=== PATIENT | female | born 1995 | race Caucasian/White ===

== ENCOUNTER 2019-11-03 11:07 | Emergency (ER) | payer SELFPAY ==
[~2019-11-03] VITALS: Ht 152.4 cm; Wt 36.3 kg
[2019-11-03 11:08] VITALS: BP 118/88
--- NOTE | 2019-11-03 11:30 | NUR ---
20G IV IN LAC. PT ON 3 LEAD EKG AND PULSE OX. AT BEDSIDE.
--- NOTE | 2019-11-03 11:53 | NUR ---
24 Y/F BIB , POSTICTAL. REPORTS HE FOUND HER IN THE SHOWER POSTICTAL. HE FOUND HER LYING WITH HER HEAD IN THE BATH TUB AND BODY OUTSIDE, HE REPORTS SHE "DRANK WATER." PT NONVERBAL, PRESENTS WITH CHIN, FOREHEAD, BRIDGE OF NOSE EDEMA, LIP SWELLING AND ERRYTHEMA. PERRLA IN TACT, RESPONDS TO VERBAL AND TACTILE STIMULUS. REPORTS SHE RAN OUT OF KEPPRA AND HAS NOT TAKEN IT FOR ONE DAY. REPORTS 3 SEIZURES ABOUT 20 MINUTES APART, LASING 30-45 SECONDS. REPORTS PT SMOKED MARIJUANA X 2 DAY. LUNGS CLEAR. PER HX- ANXIETY, PANICK ATTACK
--- NOTE | 2019-11-03 12:58 | NUR ---
PT TAKING HYDROXYZINE 25MG, AND PAROXETINE 10MG
[2019-11-03] MEDS ORDERED: levETIRAcetam 1,000 MG in NACL 0.9% 100 ML IV ONE (13:00)
[2019-11-03] MEDS ORDERED: levETIRAcetam 100 MG/ML VIAL IV ONE (13:13)
--- NOTE | 2019-11-03 13:25 | NUR ---
PTS BP 83/65, VERBAL ORDER FOR BOLUS
--- NOTE | 2019-11-03 13:28 | NUR ---
PTS AT BEDSIDE, PT OPENING EYES, SPEAKING IN FULL AND COMPLETE SENTENCES. MOVING ALL EXTREMETIES, EQUAL ARM [employer], PUPILS PERRL. LIGHTS TURNED OFF FOR PT COMFORT.
[2019-11-03] MEDS ORDERED: NACL 0.9% 1,000 ML IV ONE (13:30)
--- NOTE | 2019-11-03 13:32 | NUR ---
NEW BP 104/51
[2019-11-03 14:17] VITALS: BP 104/51
--- NOTE | 2019-11-03 14:18 | NUR ---
Patient discharged with v/s stable. Written and verbal after care instructions given and explained. Patient alert, oriented and verbalized understanding of instructions. Ambulatory with steady gait. All questions addressed prior to discharge. ID band removed. Patient advised to follow up with PMD. Rx of MOTRIN, AUGMENTIN, TRAMADOL given. Patient educated on indication of medication including possible reaction and side effects. Opportunity to ask questions provided and answered.
== END 2019-11-03 14:18 | disposition home or self-care (01) ==
LOC: MED 11:07
DX: S02.641A Fracture of ramus of right mandible, initial encounter for closed fracture (principal); S00.512A Abrasion of oral cavity, initial encounter; S00.31XA Abrasion of nose, initial encounter; R56.9 Unspecified convulsions; W22.8XXA Striking against or struck by other objects, initial encounter; Y93.89 Activity, other specified; Y92.89 Other specified places as the place of occurrence of the external cause; Y99.8 Other external cause status
CPT/HCPCS: 70450; 70486; 72125; 96365; 99284; J1953; J7030

== ENCOUNTER 2020-08-27 01:29 | Emergency (ER) | payer MEDICAID ==
[~2020-08-27] VITALS: Ht 149.9 cm; Wt 45.4 kg
[~2020-08-27 01:29] MED LIST: LEVE1000 PO
[2020-08-27 01:33] VITALS: BP 150/74
--- NOTE | 2020-08-27 01:37 | NUR ---
TO LOBBY A/W BED AMBULATORY
--- NOTE | 2020-08-27 02:54 | NUR ---
CALLED PATIENT NAME X 3 IN LOBBY AND OUTSIDE. NO RESPONSE.
[2020-08-27 02:55] VITALS: BP 150/74
--- NOTE | 2020-08-27 02:55 | NUR ---
PATIENT LEFT WITHOUT BEING SEEN BY DR. CANALES. NO FURTHER CARE PROVIDED FOR PATIENT.
== END 2020-08-27 02:55 | disposition left against medical advice (07) ==
LOC: MED 01:29
DX: R20.0 Anesthesia of skin (principal); Z53.21 Procedure and treatment not carried out due to patient leaving prior to being seen by health care provider

== ENCOUNTER 2020-11-09 18:04 | Emergency (ER) | payer MEDICAID ==
[~2020-11-09] VITALS: Ht 152.4 cm; Wt 45.0 kg
[2020-11-09 18:09] VITALS: BP 105/70
[2020-11-09] MEDS ORDERED: levETIRAcetam 1,000 MG in NACL 0.9% 100 ML IV ONE (18:15)
[2020-11-09] MEDS ORDERED: levETIRAcetam 100 MG/ML VIAL IV ONE (18:16)
[2020-11-09 19:49] VITALS: BP 95/63
== END 2020-11-09 19:50 | disposition home or self-care (01) ==
LOC: MED 18:04
DX: R56.9 Unspecified convulsions (principal)
CPT/HCPCS: 81002; 81025; 96365; 99284; J1953

== ENCOUNTER 2020-12-24 09:54 | Emergency (ER) | payer MEDICAID ==
[~2020-12-24] VITALS: Ht 149.9 cm; Wt 41.3 kg
[2020-12-24 09:56] VITALS: BP 132/83
[2020-12-24] MEDS ORDERED: ZOLP5TAB1 PO (11:48)
[2020-12-24 12:15] VITALS: BP 99/68
== END 2020-12-24 12:14 | disposition home or self-care (01) ==
LOC: MED 09:54
DX: F32.9 Major depressive disorder, single episode, unspecified (principal); G47.00 Insomnia, unspecified; Z91.018 Allergy to other foods
CPT/HCPCS: 81002; 81025; 99283

== ENCOUNTER 2020-12-30 22:15 | Emergency (ER) | payer MEDICAID ==
[~2020-12-30] VITALS: Ht 152.4 cm; Wt 41.3 kg
[~2020-12-30 22:15] MED LIST changes: +ZOLP5TAB1 PO
[2020-12-30 22:21] VITALS: BP 103/74
--- NOTE | 2020-12-30 22:32 | NUR ---
PT TAKEN TO BED 3
--- NOTE | 2020-12-30 22:40 | NUR ---
25 y/o female presented to ED c/o of LQ abd x 2 hrs . Pt describes pain as burning 10/10 sensation. Pt denies fever, chills body aches, dysuria , vaginal discharge or bleeding. Pt abd flat, soft and tender upon palpation. Active bowel sounds in all quadrants. Pt secondary c/o had x 2 witnessed seziures today. Pt states she is out of her medications, pt states she usually takes keppra 1500 mg. A/O x 4 , to is alert and able to follow all commands. Pt resting in bed, locked and in lowest position, HOB elevated, side rail x 2 w/ seizure precautions. Pt connected to monitoring manager w/ seizure pads in place. pmh: seizures ax: peaches
--- NOTE | 2020-12-30 22:44 | NUR ---
Dr. Herrera examining patient.
--- NOTE | 2020-12-30 23:15 | NUR ---
Pt ambulated to restroom w/ steady gait.
--- NOTE | 2020-12-30 23:18 | NUR ---
Lab at bedside.
[2020-12-30 23:26] LABS: APPEARANCE,URINE CLEAR (CLEAR); BILIRUBIN,URINE NEGATIVE (NEGATIVE); BLOOD, URINE NEGATIVE (NEGATIVE); COLOR,URINE YELLOW (YELLOW); LEUKOCYTE ESTERASE ,URINE NEGATIVE (NEGATIVE); NITRITE, URINE NEGATIVE (NEGATIVE); UGLUCOSE NEGATIVE (NEGATIVE)
[2020-12-30 23:28] LABS: BASOPHILS % (AUTO) 0.4 % (0.0-2.0); EOSINOPHILS # (AUTO) 0.1 K/uL (0-0.4); EOSINOPHILS % (AUTO) 2.1 % (0.0-4.0); HEMATOCRIT 40.8 % (36-48); HEMOGLOBIN 13.6 g/dL (12.0-16.0); LYMPHOCYTES # (AUTO) 1.9 K/uL (2.5-16.5); LYMPHOCYTES % (AUTO) 32.3 % (20.5-51.1); MEAN CORPUSCULAR HEMOGLOBIN 30 pg (27-31); MEAN CORPUSCULAR HGB CONC 33 g/dL (33-37); MEAN CORPUSCULAR VOLUME 88.8 fL (80-94); MONOCYTES # (AUTO) 0.5 K/uL (0.8-1.0); MONOCYTES % (AUTO) 8.6 % (1.7-9.3); NEUTROPHILS # (AUTO) 3.4 K/uL (1.8-7.7); NEUTROPHILS % (AUTO) 56.6 % (42.2-75.2); PLATELET COUNT (AUTO) 277 K/uL (140-450); RED BLOOD CELL COUNT(AUTO) 4.59 MIL/uL (4.20-5.40); WHITE BLOOD COUNT (AUTO) 5.9 K/uL (4.8-10.8)
--- NOTE | 2020-12-30 23:35 | NUR ---
PT TAKEN TO CT
[2020-12-30 23:42] LABS: ALBUMIN 4.4 g/dL (3.4-5.0); ANION GAP 10.9 (8-16); CREATININE 0.8 mg/dL (0.6-1.3); POTASSIUM 3.9 mmol/L (3.5-5.1); TOTAL BILIRUBIN 0.2 mg/dL (0.0-1.0)
--- NOTE | 2020-12-31 01:00 | NUR ---
CALLED RADIOLOGY FOR ETA ON CT REPORT - PER JYOTHI THERE IS A DELAY IN READING REPORTS BUT WILL CHECK STATUS.
--- NOTE | 2020-12-31 01:50 | NUR ---
PT LAYING LEFT LATERALLY W/ EYES CLOSED, VISIBLE RISE AND FALL OF CHEST. BED IS LOCKED AND IN LOWEST POSITION, HOB ELEVATED, SEIZURE PRECAUTIONS IN PLACE. VSS. NO ACUTE DISTRESS NOTED.
[2020-12-31] MEDS ORDERED: MAGNESIUM CITRATE 300 ML BTL PO ONE (03:05)
[2020-12-31 03:22] VITALS: BP 94/62
--- NOTE | 2020-12-31 03:22 | NUR ---
Patient discharged with v/s stable. Written and verbal after care instructions given and explained. Patient verbalized understanding. Ambulatory with steady gait. All questions addressed prior to discharge. Advised to follow up with PMD.
== END 2020-12-31 03:22 | disposition home or self-care (01) ==
LOC: MED 22:15
DX: R10.30 Lower abdominal pain, unspecified (principal); Z79.899 Other long term (current) drug therapy; Z91.018 Allergy to other foods
CPT/HCPCS: 36415; 80053; 81003; 81025; 84702; 85025; 99285

== ENCOUNTER 2021-01-12 23:40 | Emergency (ER) | payer MEDICAID ==
[~2021-01-12] VITALS: Ht 152.4 cm; Wt 40.6 kg
[2021-01-12 23:54] VITALS: BP 101/69
--- NOTE | 2021-01-12 23:54 | NUR ---
TO BED AMBULATORY
--- NOTE | 2021-01-13 | NUR ---
25 YO/F BIB FAMILY WITH COMPLAINT OF SEIZURE PT HAD 2 PREVIOUS EPISODES LATEST ONE WAS AT 1900. PT VERBALIZED FEELING HER AURA. PT AAOX4, PERRL. SAFETY MEASURES IN PLACE, SIDE RAILS RAISED AND PADDED, PT HOOKED TO MONITORS, VS STABLE AT THIS TIME. WILL CONTINUE TO MONITOR. PMH: SEIZURES, HYPOTENSION ALLERGY: PEACHES
--- NOTE | 2021-01-13 00:23 | NUR ---
DR. MEI AT BEDSIDE FOR EXAMINATION
[2021-01-13] MEDS ORDERED: LORazepam 1 MG TAB PO ONE (00:35)
[2021-01-13 01:07] LABS: CARBON DIOXIDE 26.4 mmol/L (21-32); CREATININE 0.6 mg/dL (0.6-1.3); POTASSIUM 3.4 mmol/L (3.5-5.1)
[2021-01-13] MEDS ORDERED: POTASSIUM CHLORIDE 20% 40 MEQ/15 ML UDC PO ONE (01:25)
--- NOTE | 2021-01-13 02:05 | NUR ---
Patient discharged with v/s stable. Written and verbal after care instructions given and explained. Patient alert, oriented and verbalized understanding of instructions. Ambulatory with steady gait. All questions addressed prior to discharge. ID band removed. Patient advised to follow up with PMD. Rx of BRITTANY CALDWELL given. Patient educated on indication of medication including possible reaction and side effects. Opportunity to ask questions provided and answered.
[2021-01-13 02:06] VITALS: BP 108/68
== END 2021-01-13 02:05 | disposition home or self-care (01) ==
LOC: MED 23:40
DX: R56.9 Unspecified convulsions (principal); Z91.018 Allergy to other foods
CPT/HCPCS: 36415; 80048; 99283

== ENCOUNTER 2021-02-02 00:01 | Emergency (ER) | payer MEDICAID ==
[~2021-02-02] VITALS: Ht 152.4 cm; Wt 56.7 kg
[2021-02-02 00:08] VITALS: BP 120/66
--- NOTE | 2021-02-02 00:08 | NUR ---
TO BED AMBULATORY
[2021-02-02] MEDS ORDERED: levETIRAcetam 500 MG TAB PO ONE (00:20)
--- NOTE | 2021-02-02 00:30 | NUR ---
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 PT HAS H/O SEIZURES. APPEARS POST-ICTAL. SZ PRECAUTIONS PLACED
--- NOTE | 2021-02-02 01:01 | NUR ---
AWAKE, AMBULATED TO BR WITH STEADY GAIT
--- NOTE | 2021-02-02 01:21 | NUR ---
Dr. Cobb examining patient.
[2021-02-02] MEDS ORDERED: LEVE1000 PO (01:35)
[2021-02-02 02:00] VITALS: BP 120/66
--- NOTE | 2021-02-02 02:00 | NUR ---
Patient discharged with v/s stable. Written and verbal after care instructions given and explained. Patient alert, oriented and verbalized understanding of instructions. Ambulatory with steady gait. All questions addressed prior to discharge. ID band removed. Patient advised to follow up with PMD. Rx of KEXOCHITL given. Patient educated on indication of medication including possible reaction and side effects. Opportunity to ask questions provided and answered.
== END 2021-02-02 02:00 | disposition home or self-care (01) ==
LOC: MED 00:01
DX: R56.9 Unspecified convulsions (principal); Z79.899 Other long term (current) drug therapy; Z91.018 Allergy to other foods
CPT/HCPCS: 99283

== ENCOUNTER 2021-02-07 21:28 | Emergency (ER) | payer MEDICAID ==
[~2021-02-07] VITALS: Ht 152.4 cm; Wt 45.4 kg
[2021-02-07 21:53] VITALS: BP 128/73
--- NOTE | 2021-02-07 21:57 | NUR ---
TO LOBBY A/W BED WITH AMBULATORY
--- NOTE | 2021-02-07 22:30 | NUR ---
PATIENT 26 Y/O FEMALE BIBA FROM HOME FOR C/O ANXIETY AND POSSIBLE SEIZRE ACTIVITY. PER EMS REPORT PATIENT STATES," I THINK I'M HAVING A SEIZURE" DURING TRANSPORTATION AND PATIENT WAS A&O X 4, VERBAL AND RESPONSIVE. PATIENT STATES, "I HAVE A HISTORY OF SIZURES AND I FEEL AXIETY RIGHT NOW." PATIENT DENIES HITTING HEAD, PATIENT A&O X 4. PATIENT RESPIRATIONS ARE EVEN AND UNLABORD. SKIN IS WARM AND DRY TO TOUCH. MEDHX: SIEZURES, AXNIETY ALLERGIES: NKA RX: "KEPPRA 150 MG"
--- NOTE | 2021-02-08 00:12 | NUR ---
Patient appears to be resting comfortably in bed. Vital Signs within normal limits. Respirations even and unlabored. Seizure precautions in place. Bed is locked and in lowest postion.
[2021-02-08 00:23] LABS: BASOPHILS % (AUTO) 0.2 % (0.0-2.0); EOSINOPHILS # (AUTO) 0.1 K/uL (0-0.4); EOSINOPHILS % (AUTO) 1.2 % (0.0-4.0); HEMATOCRIT 36.8 % (36-48); HEMOGLOBIN 12.2 g/dL (12.0-16.0); LYMPHOCYTES # (AUTO) 1.4 K/uL (2.5-16.5); LYMPHOCYTES % (AUTO) 15.8 % (20.5-51.1); MEAN CORPUSCULAR HEMOGLOBIN 30 pg (27-31); MEAN CORPUSCULAR HGB CONC 33 g/dL (33-37); MEAN CORPUSCULAR VOLUME 89.2 fL (80-94); MONOCYTES # (AUTO) 0.6 K/uL (0.8-1.0); MONOCYTES % (AUTO) 6.3 % (1.7-9.3); NEUTROPHILS # (AUTO) 6.8 K/uL (1.8-7.7); NEUTROPHILS % (AUTO) 76.5 % (42.2-75.2); PLATELET COUNT (AUTO) 224 K/uL (140-450); RED BLOOD CELL COUNT(AUTO) 4.13 MIL/uL (4.20-5.40); WHITE BLOOD COUNT (AUTO) 8.9 K/uL (4.8-10.8)
[2021-02-08 00:36] LABS: ANION GAP 11.8 (8-16); CARBON DIOXIDE 25.6 mmol/L (21-32); CREATININE 0.6 mg/dL (0.6-1.3); POTASSIUM 3.4 mmol/L (3.5-5.1); TOTAL BILIRUBIN 0.3 mg/dL (0.0-1.0)
--- NOTE | 2021-02-08 01:03 | NUR ---
PATIENT AMBUALTED TO RESTROOM WITH STEADY GAIT. UA CUP PROVIDED.
[2021-02-08] MEDS ORDERED: POTASSIUM CHLORIDE 10 MEQ TABER PO ONE ×2 (01:10→01:15)
[2021-02-08 01:41] LABS: APPEARANCE,URINE CLEAR (CLEAR); BILIRUBIN,URINE 1+ (NEGATIVE); BLOOD, URINE NEGATIVE (NEGATIVE); COLOR,URINE YELLOW (YELLOW); LEUKOCYTE ESTERASE ,URINE NEGATIVE (NEGATIVE); NITRITE, URINE NEGATIVE (NEGATIVE); UGLUCOSE NEGATIVE (NEGATIVE)
[2021-02-08 01:55] LABS: RBC,URINE 0-5 /HPF (0-5); WBC,URINE 0-5 /HPF (0-5)
--- NOTE | 2021-02-08 02:19 | NUR ---
Patient left without signing d/c paperwork.
[2021-02-08 02:20] VITALS: BP 99/63
== END 2021-02-08 02:20 | disposition home or self-care (01) ==
LOC: MED 21:28
DX: R56.9 Unspecified convulsions (principal); E87.6 Hypokalemia; F41.9 Anxiety disorder, unspecified; Z91.018 Allergy to other foods; Z79.899 Other long term (current) drug therapy
CPT/HCPCS: 36415; 80053; 81001; 84702; 85025; 87086; 93005; 99284

== ENCOUNTER 2022-03-12 10:11 | Emergency (ER) | payer MEDICAID ==
[~2022-03-12] VITALS: Ht 160 cm; Wt 55.8 kg
--- NOTE | 2022-03-12 10:11 | NUR ---
DR. CUADRA AT BEDSIDE EVALUATING PT.
--- NOTE | 2022-03-12 10:11 | NUR ---
PT BIBA TO BED 05.
[2022-03-12 10:19] VITALS: BP 89/61
[2022-03-12] MEDS ORDERED: levETIRAcetam 500 MG TAB PO ONE (10:30)
--- NOTE | 2022-03-12 10:35 | NUR ---
27 Y/O FEMALE BIBA FROM HOME. EMS STATED THAT SHE HAD 3 WITNESSED SEIZURES, X1 MIN LONG TONIC CLONIC WITH NO RETURN TO CONSCIOUSNESS IN BETWEEN SEIZURES. DENIED HITTING HEAD. PT IS GCS 15, A/OX4 NOW. EMS STATED THAT SHE WAS A/OX2 ON SCENE. 18G ON THE R AC. NO MEDICATION GIVEN, NO ORAL TRAUMA NOTED. SEIZURE PADS IN PLACE. ALLERGY: PEACHES PMH: SEIZURES MED: BRITTANY
[2022-03-12 11:16] LABS: BASOPHILS % (AUTO) 0.1 % (0.0-2.0); EOSINOPHILS % (AUTO) 0.1 % (0.0-4.0); HEMATOCRIT 37.2 % (36-48); HEMOGLOBIN 12.3 g/dL (12.0-16.0); LYMPHOCYTES # (AUTO) 0.5 K/uL (2.5-16.5); LYMPHOCYTES % (AUTO) 5.2 % (20.5-51.1); MEAN CORPUSCULAR HEMOGLOBIN 29 pg (27-31); MEAN CORPUSCULAR HGB CONC 33 g/dL (33-37); MEAN CORPUSCULAR VOLUME 87.8 fL (80-94); MONOCYTES # (AUTO) 0.5 K/uL (0.8-1.0); MONOCYTES % (AUTO) 4.9 % (1.7-9.3); NEUTROPHILS # (AUTO) 8.7 K/uL (1.8-7.7); NEUTROPHILS % (AUTO) 89.7 % (42.2-75.2); PLATELET COUNT (AUTO) 240 K/uL (140-450); RED BLOOD CELL COUNT(AUTO) 4.24 MIL/uL (4.20-5.40); RED CELL DISTRIBUTION WIDTH 13.2 % (11.6-13.7); WHITE BLOOD COUNT (AUTO) 9.7 K/uL (4.8-10.8)
[2022-03-12 11:19] LABS: APPEARANCE,URINE CLEAR (CLEAR); BILIRUBIN,URINE NEGATIVE (NEGATIVE); BLOOD, URINE NEGATIVE (NEGATIVE); COLOR,URINE YELLOW (YELLOW); LEUKOCYTE ESTERASE ,URINE TRACE (NEGATIVE); NITRITE, URINE NEGATIVE (NEGATIVE); UGLUCOSE NEGATIVE (NEGATIVE)
--- NOTE | 2022-03-12 11:22 | NUR ---
PT AT REST AND SLEEPING
[2022-03-12 11:29] LABS: ALBUMIN 3.7 g/dL (3.4-5.0); ANION GAP 9.9 (8-16); CARBON DIOXIDE 24.7 mmol/L (21-32); CREATININE 0.6 mg/dL (0.6-1.3); MAGNESIUM 1.9 mg/dL (1.8-2.4); PHOSPHORUS 3.4 mg/dL (2.5-4.9); POTASSIUM 3.6 mmol/L (3.5-5.1); TOTAL BILIRUBIN 0.4 mg/dL (0.0-1.0)
[2022-03-12 11:41] LABS: OTHER CASTS, URINE None Seen /LPF (None Seen); RBC,URINE 0-5 /HPF (0-5); WBC,URINE 0-5 /HPF (0-5)
--- NOTE | 2022-03-12 13:01 | NUR ---
IV removed, catheter intact and site benign. Applied folded 4x4 gauze and tape to stop bleeding.
--- NOTE | 2022-03-12 13:07 | NUR ---
Patient discharged with v/s stable. Written and verbal after care instructions FOR SEIZURE given and explained. Patient verbalized understanding. Ambulatory with steady gait. All questions addressed prior to discharge. Advised to follow up with PMD.
[2022-03-12 13:08] VITALS: BP 98/56
--- NOTE | 2022-03-12 13:20 | NUR ---
PT ATTEMPTED TO CALL FAMILY TO PICK HER UP, STATED THEY ARE NOT ABLE TO. RESOURCE EFFICIENCY MANAGER CONTACTED TO SET UP UBER
--- NOTE | 2022-03-12 13:21 | NUR ---
The patient's care was reviewed and supervised by Hallie Knapp RN.
== END 2022-03-12 13:07 | disposition home or self-care (01) ==
LOC: MED 10:11
DX: R56.9 Unspecified convulsions (principal)
CPT/HCPCS: 36415; 80053; 81001; 83735; 84100; 84703; 85025; 99283

== ENCOUNTER 2022-09-25 17:31 | Emergency (ER) | payer MEDICAID, OTHER ==
[~2022-09-25] VITALS: Ht 162.6 cm; Wt 54.4 kg
[2022-09-25 17:35] VITALS: BP 98/72
[2022-09-25] MEDS ORDERED: levETIRAcetam 1,000 MG in NACL 0.9% 100 ML IV ONE (17:40)
--- NOTE | 2022-09-25 17:45 | NUR ---
27F presents to ED with c/o seizures today. Pt reports having 5 seizures today, last one around 1600, states body weakness and a constant aching like, 10/10 body aches and head pain. Upon assessment pt denies dizziness, is unaware of time and year when asked by ERMD. Pt reports being compliant with Rx of Keppra. Pt changed into gown and placed on bedside monitor, seizure precautions in place. Dr. Woo at bedside evaluating pt.
[2022-09-25 18:11] LABS: BASOPHILS # (AUTO) 0.1 K/uL (0.00-0.22); BASOPHILS % (AUTO) 0.6 % (0.0-2.0); EOSINOPHILS % (AUTO) 0.3 % (0.0-4.0); HEMOGLOBIN 12.6 g/dL (12.0-16.0); LYMPHOCYTES % (AUTO) 8.7 % (20.5-51.1); MEAN CORPUSCULAR HEMOGLOBIN 29 pg (27-31); MEAN CORPUSCULAR HGB CONC 33 g/dL (33-37); MEAN CORPUSCULAR VOLUME 88.3 fL (80-94); MONOCYTES # (AUTO) 0.6 K/uL (0.8-1.0); MONOCYTES % (AUTO) 4.9 % (1.7-9.3); NEUTROPHILS # (AUTO) 9.6 K/uL (1.8-7.7); NEUTROPHILS % (AUTO) 85.5 % (42.2-75.2); PLATELET COUNT (AUTO) 224 K/uL (140-450); RED CELL DISTRIBUTION WIDTH 13.1 % (11.6-13.7); WHITE BLOOD COUNT (AUTO) 11.2 K/uL (4.8-10.8)
[2022-09-25 18:32] LABS: ANION GAP 10.9 (8-16); CARBON DIOXIDE 27.4 mmol/L (21-32); CREATININE 0.7 mg/dL (0.6-1.3); POTASSIUM 3.3 mmol/L (3.5-5.1)
[2022-09-25 18:41] LABS: ALBUMIN 3.9 g/dL (3.4-5.0); TOTAL BILIRUBIN 0.6 mg/dL (0.0-1.0)
[2022-09-25 18:42] LABS: BILIRUBIN,URINE NEGATIVE (NEGATIVE); BLOOD, URINE NEGATIVE (NEGATIVE); COLOR,URINE YELLOW (YELLOW); LEUKOCYTE ESTERASE ,URINE TRACE (NEGATIVE); NITRITE, URINE NEGATIVE (NEGATIVE); PH,URINE 6.5 (5.0-9.0); UGLUCOSE NEGATIVE (NEGATIVE)
[2022-09-25 18:43] LABS: APPEARANCE,URINE HAZY (CLEAR)
[2022-09-25 18:48] LABS: RBC,URINE NONE SEEN /HPF (0-5); WBC,URINE 0-5 /HPF (0-5)
--- NOTE | 2022-09-25 20:10 | NUR ---
Pt stated that she wants to leave AMA. Dr. Woo educated pt regarding the risks and consequences.
[2022-09-25] MEDS ORDERED: LEVE1000 PO (20:55)
--- NOTE | 2022-09-25 21:02 | NUR ---
Pt left AMA. Alert and awake. Gait steady. No s/s distress.
[2022-09-25 21:03] VITALS: BP 101/64
[2022-09-25] MEDS ORDERED: CEPH-588 PO (22:26)
== END 2022-09-25 21:02 | disposition left against medical advice (07) ==
LOC: MED 17:31
DX: G40.901 Epilepsy, unspecified, not intractable, with status epilepticus (principal); N39.0 Urinary tract infection, site not specified; R51.9 Headache, unspecified; H53.8 Other visual disturbances; F41.9 Anxiety disorder, unspecified; Z91.018 Allergy to other foods; Z79.899 Other long term (current) drug therapy
CPT/HCPCS: 36415; 70450; 80053; 81001; 81025; 85025; 96365; 99284; J1953